=== PATIENT | male | born 1950 | race Caucasian/White ===

== ENCOUNTER 2023-07-25 06:33 | Day surgery (SDC) | payer MEDICARE, SELFPAY ==
[2023-07-20 10:18] LABS: % Basophils 1.5 % (0-2); % Eosinophils 3.2 % (0-6); % Immature Granulocytes 0.5 % (0-0.5); % Lymphocytes 27.9 % (20.5-51.1); % Monocytes 16.9 % (1.7-9.3); Absolute Basophils 0.1 10^3/uL (0-0.2); Absolute Eosinophils 0.1 10^3/uL (0-0.7); Absolute Lymphocytes 1.1 10^3/uL (1.2-3.4); Absolute Monocytes 0.7 10^3/uL (0.1-0.6); Hematocrit 41.1 % (39.0-52.0); Hemoglobin 13.7 g/dL (13.0-18.0); Mean Corp Hgb Conc. 33.3 g/dL (33.0-37.0); Mean Corpuscular Hgb 29.8 pg (27.0-31.0); Mean Corpuscular Volume 89.5 fL (80.0-94.0); Mean Platelet Volume 10.9 fL (7.4-10.4); Nucleated Red Blood Cells % 0 % (-); Platelet Count 218 10^3/uL (130-400); Red Blood Cell Count 4.59 10^6/uL (4.70-6.10); Red Cell Dist. Width 14.7 % (11.5-14.5); White Blood Cell Count 4.1 10^3/uL (4.8-10.8)
[2023-07-20 10:25] LABS: Urine Albumin Negative (Neg - Trace); Urine Bilirubin Negative (Negative); Urine Character Clear (Clear); Urine Color Yellow; Urine Glucose Negative (Negative); Urine Ketone Negative (Negative); Urine Leukocyte Negative (Negative); Urine Nitrite Negative (Negative); Urine Occult Blood Negative (Negative); Urine Urobilinogen Negative (Neg - 1+)
[2023-07-20 11:32] LABS: ALT (SGPT) 27 U/L (0-50); AST (SGOT) 40 U/L (17-59); Albumin 4.2 g/dl (3.5-5.0); Alkaline Phosphatase 112 U/L (38-126); Blood Urea Nitrogen 21 mg/dl (9-20); Calcium 9.5 mg/dl (8.4-10.2); Carbon Dioxide 29 mmol/L (22-30); Chloride 101 mmol/L (98-107); Glucose 111 mg/dl (70-99); HDL Cholesterol 105 mg/dl; LDL Cholesterol, Calculated 28 mg/dl; Potassium 4.2 mmol/L (3.5-5.1); Sodium 140 mmol/L (135-145); Total Bilirubin 0.8 mg/dl (0.2-1.3); Total Cholesterol 142 mg/dl (50-199); Total Protein 7.3 g/dl (6.3-8.2); Triglyceride 47 mg/dl (10-149); Very Low Density Lipoprotein 9 mg/dl (0-30); eGFR > 60.00
[2023-07-20 11:33] LABS: Uric Acid 7.1 mg/dl (3.5-8.5)
[2023-07-20 11:49] LABS: PSA, Total - Screen 1.79 ng/ml (0.0-4.0); TSH 1.15 uIU/ml (0.47-4.68)
[2023-07-20 11:59] VITALS: BMI 23.0
[2023-07-25 11:42] VITALS: BMI 23.0
[2023-07-25 11:48] VITALS: BP 125/67
[2023-07-25] MEDS: TYLENOL 1000 MG PO (12:11)
[2023-07-25] MEDS: NORMOSOL-R 1000 IV (12:11)
[2023-07-25] MEDS: VANCOCIN 200 IV (13:05)
[2023-07-25 14:45] VITALS: BP 112/74
[2023-07-25 15:00] VITALS: BP 110/68
[2023-07-25 15:15] VITALS: BP 106/70
[2023-07-25 15:30] VITALS: BP 110/66
== END 2023-07-25 16:00 | disposition home or self-care (01) ==
LOC: SDS 06:33
PROVIDERS: ATTENDING PHYSICIAN Student in an Organized Health Care Education/Training Program; FAMILY PHYSICIAN Internal Medicine
DX: M86.8X7 Other osteomyelitis, ankle and foot (principal); L97.522 Non-pressure chronic ulcer of other part of left foot with fat layer exposed
CPT/HCPCS: 28825; 88305; 88311; 36415; 80053; 80061; 81003; 84443; 84550; 85025; 87070; 87075; 87147; 87176; 87186; 87205; G0103

== ENCOUNTER → 2024-01-03 07:43 | Outpatient (REF) | payer MEDICARE, SELFPAY | LOC: EMG 07:43 | PROVIDERS: ATTENDING PHYSICIAN Pain Medicine Interventional Pain Medicine; FAMILY PHYSICIAN Internal Medicine | DX: M54.16 Radiculopathy, lumbar region (principal); R20.0 Anesthesia of skin | CPT/HCPCS: 95886; 95911 ==

== ENCOUNTER → 2024-01-25 14:22 | Outpatient (REF) | payer MEDICARE, SELFPAY | LOC: PAVMRI 14:22 | PROVIDERS: ATTENDING PHYSICIAN Pain Medicine Interventional Pain Medicine; FAMILY PHYSICIAN Internal Medicine | DX: M54.16 Radiculopathy, lumbar region (principal) | CPT/HCPCS: 72148 ==

== ENCOUNTER → 2024-09-09 14:09 | Outpatient (REF) | payer MEDICARE, SELFPAY | LOC: RAD 14:09 | PROVIDERS: ATTENDING PHYSICIAN Specialist; FAMILY PHYSICIAN Internal Medicine | DX: R27.0 Ataxia, unspecified (principal); Z86.73 Personal history of transient ischemic attack (TIA), and cerebral infarction without residual deficits | CPT/HCPCS: 93880 ==

== ENCOUNTER 2024-11-02 17:49 | Emergency (ER) | payer MEDICARE, SELFPAY ==
[2024-11-02] VITALS (7 sets, daily range): BP systolic 131–152; BP diastolic 72–113; BMI 22.0
--- NOTE | 2024-11-02 18:38 | ED.GENMED ---
History of Present Illness
General
Chief Complaint: Head Injury
Source: patient
Exam Limitations: none
Time Seen by Provider: 11/02/24 18:37
Nursing documentation reviewed up to this point in time: agreed with
History of Present Illness
History of Present Illness:
Patient is a pleasant 74-year-old man who reports that he drank a full bottle of wine on an empty stomach and stumbled, and fell down. Patient has abrasions to his face and a laceration near his right eyebrow. Patient reports he is up-to-date with
his tetanus. He denies headache, nausea, vomiting and dizziness. He denies vision changes. He denies neck pain and back pain. He reports he was previously feeling well.
Past History
Past History
ED Past Medical History: Cancer (esophageal), CVA (R frontal stroke) and Other (gout, generalized anxiety disorder)
ED Past Surgical History: Orthopedic (right knee surgery, C7-T1 epidural steroid injection 2017), Tonsilectomy and Other (jejunostomy tube, right carotid endarterectomy May 2018, sinus surgery �2)
Social History
Tobacco: Non-smoker
Alcohol: Daily
Drug: None
Personal: Single
Living: alone
Employment: Other
Family History
Family History: Other (reviewed and non-contributory)
Review of Systems
Review of Systems
Allergies reviewed?: Yes
All Other Systems: ROS reviewed and negative except as documented in HPI and ROS
Constitutional: Reports no symptoms
EENT: Reports no symptoms
Respiratory: Reports no symptoms
Cardiac: Reports no symptoms
ABD/GI: Reports no symptoms
: Reports no symptoms
Musculoskeletal: Reports no symptoms
Skin: Reports other
Neurological: Reports no symptoms
Endocrine: Reports no symptoms
Hematologic/Lymphatic: Reports no symptoms
Psychiatric: Reports no symptoms
Phy Exam
Physical Exam
Physical Exam:
Physical Exam
General: no apparent distress. Smells intoxicated. 2 cm horizontally aligned laceration just medial to right eyebrow. Abrasion right face. Abrasion from the right nostril. Dried blood in right nostril
Neck: supple. Nontender C-spine
Heart: s1/s2 regular rate and rhythm, no chest wall tenderness
Lungs: no acute respiratory distress. clear bilaterally, no vertebral spine tender
Abdomen: Soft, nontender
Neuro: alert and orientedx3. no focal neurological deficits
Skin: 2 cm laceration right frontal scalp area, just medial to right eyebrow
Psychiatric: well kept. interactive and cooperative
Extremities: no edema. no calf tenderness. negative homans. good distal pulses. Atraumatic upper and lower extremities. Atraumatic pelvis and hips
Course
Orders/Labs/Results
Orders:
Orders
11/02/24 19:17
CT Head W/o Iv Contrast Urgent
Comment:
Reason For Exam: fell, hit head
11/02/24 19:18
Electrocardiogram (*1) Urgent
Reason for Study: Other
Other Reason for Exam: fall
CT Cervical Spine W/o Iv Contr Urgent
Comment:
Reason For Exam: fall
CT Facial Bones W/o Iv Contras Urgent
Comment:
Reason For Exam: fall
EKG- Treatment ONCE
Vital Signs
Initial and Last Documented VS:
Initial Vital Signs
BP
131/73
11/02/24 17:55
Last Documented Vital Signs
Temp Pulse Resp BP Pulse Ox
98.6 F 78 20 152/86 98
11/02/24 19:40 11/02/24 20:57 11/02/24 20:57 11/02/24 20:57 11/02/24 20:57
Procedures
Laceration Closure
Right Face:
Status of Wound: clean
Description of Wound Edges: ragged and surrounded by abrasion
Preparation: cleaned with saline
Anesthesia: 1% Lidocaine with epi
Revision/Debridement: irrigate-direct pressure
Wound exploration: no tendon involvement
Type of Closure: single layer closure
Skin Closure Material: 4-0 nylon
Number of sutures: 3
MDM/Problems Addressed
Differential Diagnosis Includes:
Close head injury, subdural hematoma, scalp laceration, nasal bone fracture
MDM/Problems Addressed:
Patient presents with acute closed head injury and scalp laceration and facial abrasions
*Radiology
Radiology exam reviewed: radiology read reviewed
*Pulse Oximetry
Patient hypoxic: no
Comment: Pulse ox 98% on room air
*EKG
Interpreted by ED Provider?: NA
*[employer] System Maintainer Interpretation
Rate: normal
Interpretation: normal
Rhythm: sinus
*Critical Care Note
Total Time (30-74mins, 75-104mins- exclusive of procedures): Not Applicable
Data Reviewed
Review of Other/Old Records Reveals: Progress Notes (Office note reviewed from [facility] orthopedics from July 2023 which shows that patient has history of osteomyelitis of toe)
Source: patient
Patient Management
Social determinants of health affecting care: Strong social support
Escalation/DeEscalation of care consider admission/obs:
Patient walking around steadily in the ED. Patient will take a cab or a ride home.
Patient also sent home with copies of CAT scan report to go over with his doctor. Patient instructed to follow-up with his doctor in 4 to 5 days have the sutures removed in review the CAT scan reports
ED Attending Note
-
Portions of this chart may have been created with voice recognition software.� Occasional wrong word or��sound alike� substitutions may have occurred due to the inherent limitations of voice recognition software.
Discharge Plan
Departure
Patient Disposition: Home (Routine Discharge)
Date of Disposition: 11/02/24
Time of Disposition: 21:29
Patient with high blood pressure during this ER visit?: Yes
Condition: Good
Covid-19: Not Applicable
Discharge Problem:
Closed head injury, Fracture of nasal bone, Facial laceration, Alcohol intoxication
Instructions: Head Injury in Adults (DC), Nose Fracture ED, Alcohol intoxication - ED discharge instructions, BLOOD PRESSURE, Laceration
Prescriptions:
No Action
azelastine 1 SPRAY aerosol,spray
2 spray intranasal BID
cyclosporine [Restasis] 10 DROPS dropperette
1 drp BOTH EYES BID
olopatadine [Pataday] 2.5 ML drops
1 drp BOTH EYES DAILY
diphenoxylate-atropine 1 TABLET tablet
1 tab PO Q4HPRN PRN (Reason: diarrhea)
lorazepam 0.5 MG tablet
0.5 mg PO Q4HPRN PRN (Reason: anxiety)
aspirin 81 MG tablet,delayed release (DR/EC)
81 mg PO DAILY Qty: 60 0RF
multivitamin [One Daily Essential] 1 EACH tablet
1 ea PO DAILY
famotidine 20 MG tablet
20 mg PO DAILY
Vitamin C 100 MG tablet
100 mg PO DAILY
cholecalciferol (vitamin D3) [Vitamin D3] 1,000 UNIT capsule
1,000 unit PO DAILY
fish oil-dha-epa 1 EACH capsule
1 ea PO DAILY
Creon
1 tab PO TID
Patient Comments:
pt unsure of doseage.
acyclovir 400 mg Tablet
400 mg PO BID
prednisolone acetate 1 % Drops,Suspension
1 drp LEFT EYE MOWEFR
mometasone [Nasonex] 50 mcg/actuation [place],Non-Aerosol
2 spray INTRANASAL BID
colchicine 0.6 mg Tablet
0.6 mg PO BID
Probiotic
1 tab PO DAILY
atorvastatin 80 MG tablet
80 mg PO DAILY
Referrals:
Ghanshyam Ornelas MD [Family Provider, Internal Medicine]
Activity Restrictions/Additional Instructions:
Please return with any vomiting or severe/unusual headache.
Please keep your sutures dry for 48 hours. After that, you can take off the bandage and get the area wet. You will need to have the sutures taken out in about 5 days
Interventions
Interventions:
*Risk Screen - Suicide Last Done: 11/02/24 18:00
*General Assessment Last Done: 11/02/24 18:00
*Neglect/Abuse Screening Last Done: 11/02/24 18:00
*ED COVID-19 Vaccine History Last Done: 11/02/24 18:05
ED- Neurological Assessment Last Done: 11/02/24 19:40
ED-Skin Assessment Last Done: 11/02/24 19:40
Discharge Date and Time
Print Language: ARMENIAN
== END 2024-11-02 21:50 | disposition home or self-care (01) ==
LOC: EMR 17:49
PROVIDERS: EMERGENCY PHYSICIAN Emergency Medicine; FAMILY PHYSICIAN Internal Medicine Geriatric Medicine
DX: S02.2XXA Fracture of nasal bones, initial encounter for closed fracture (principal); S01.111A Laceration without foreign body of right eyelid and periocular area, initial encounter; W01.0XXA Fall on same level from slipping, tripping and stumbling without subsequent striking against object, initial encounter; Z86.73 Personal history of transient ischemic attack (TIA), and cerebral infarction without residual deficits; F10.129 Alcohol abuse with intoxication, unspecified; Y90.9 Presence of alcohol in blood, level not specified
CPT/HCPCS: 12011; 99284; 70450; 70486; 72125

== ENCOUNTER → 2025-05-12 12:51 | Outpatient (REF) | payer MEDICARE, SELFPAY | LOC: HWRAD 12:51 | PROVIDERS: ATTENDING PHYSICIAN Internal Medicine Geriatric Medicine | DX: N40.1 Benign prostatic hyperplasia with lower urinary tract symptoms (principal) | CPT/HCPCS: 76857 ==